=== PATIENT | female | born 1965 | race Caucasian/White ===

== ENCOUNTER → 2017-03-22 | Outpatient (CLI) | payer BC ==
[2016-08-06 12:00] VITALS: BP 144/91
== END ==
LOC: LAB 08:47
PROVIDERS: ATTEND Nurse Practitioner Family
DX: E03.8 Other specified hypothyroidism (principal)
CPT/HCPCS: 36415; 84436; 84480

== ENCOUNTER → 2017-07-24 | Outpatient (CLI) | payer BC ==
[2016-08-06 12:00] VITALS: BP 144/91
[2017-07-24 09:10] LABS: T4 (THYROXINE) 9.8 ug/dL (4.7-13.3); TSH (3RD GENERATION) 2.357 uIU/mL (0.358-3.74)
== END ==
LOC: LAB 08:20
PROVIDERS: ATTEND Nurse Practitioner Family
DX: E03.8 Other specified hypothyroidism (principal)
CPT/HCPCS: 36415; 84436; 84443; 84480